=== PATIENT | female | born 1995 ===

== ENCOUNTER 2021-10-25 10:03 | Outpatient (REF) | payer SELFPAY ==
[2021-10-28 11:04] LABS: COVID-19 RT-PCR UVMMC Result Negative (Negative)
== END 2021-10-25 10:04 | disposition home or self-care (01) ==
LOC: NCHCN 10:03
PROVIDERS: Visit Provider Physician Assistant
DX: Z20.822 Contact with and (suspected) exposure to COVID-19 (principal); R05.8 Other specified cough; R09.89 Other specified symptoms and signs involving the circulatory and respiratory systems; R06.02 Shortness of breath
CPT/HCPCS: U0003